=== PATIENT | male | born 1975 | race Caucasian/White ===

== ENCOUNTER 2020-10-26 13:04 | Emergency (ER) | payer MEDICAID, SELFPAY ==
[2020-10-26 13:05] VITALS: BP 132/84; PULSE 58; RESP 16; TEMP 36.4; O2SAT 98; BMI 27.1
[2020-10-26] MEDS: Lidocaine 1% (20 ml mdv) 20 ML Vial 5 ML INFILT (14:01)
[2020-10-26] MEDS: Lidocaine/Epi/Tetracaine 50 ML 1 APPLIC TOPICAL (14:01)
--- NOTE | 2020-10-26 15:16 | EX.ED.UPPERE ---
HPI History of Present Illness HPI Narrative: Splinter in right palm. Chief Complaint: Foreign Body Informant: patient Onset/Context/Timing Onset: Yesterday Timing: Continuous Quality of Pain: Sharp Current Severity: Mild Maximum Severity: Mild Narrative Narrative: 45-year-old male [id number]. Tetanus Immunization: 5-10 years Prior similar symptoms: No Recent Illness/Hospitalization: No PFSH PFSH Home Medications cephalexin 500 mg PO Q6H 7 Days #28 cap 10/26/20 [Rx Last Taken Unknown] Allergy/AdvReac Type Severity Reaction Status Date / Time No Known Allergies Allergy Verified 10/26/20 13:04 Social History Smoking Status: Current every day smoker tobacco type: cigarettes ROS ROS ED ROS Narrative Patient denies any recent illness. Review of Systems ROS Unobtainable: Denies due to encephalopathy Constitutional Constitutional ED: Denies frequent falls Eyes Eyes: Denies change in vision ENT ENT ED: Denies ear pain or sore throat Cardiovascular Cardiovascular: Denies chest pain Respiratory/Chest Respiratory/Chest: Denies dyspnea Gastrointestinal Gastrointestinal: Denies abdominal pain, diarrhea, nausea or vomiting Genitourinary Genitourinary ED: Denies dysuria Musculoskeletal Musculoskeletal: Denies myalgias Integumentary Denies rash Neurologic Neurologic: Denies headache(s) Psychiatric Psychiatric: Denies depression Endocrine Endocrinology: Denies polyuria Hematologic/Lymphatic Hematologic/Lymphatic: Denies easy bruising Allergic/Immunologic Allergic/Immunologic ED: Denies urticaria EXAM Physical Exam Narrative Exam Narrative: Well-appearing middle-age male no acute distress. Vital signs stable afebrile. Patient is a small puncture wound to the ulnar side of his right medial palm. Tender to palpation. No pus. No red streaks. No lymphadenopathy. He has full range of motion of his right wrist and hand. Is full flexion-extension all digits 8. Hand neurovascularly intact. Otherwise exam unremarkable. Const Vital Signs: 10/26/20 13:05 Temperature 97.6 F L Temperature Source Temporal Pulse Rate 58 L Respiratory Rate 16 Blood Pressure 132/84 H Blood Pressure Mean 100 Pulse Ox 98 Oxygen Delivery Method Room Air Positive well nourished and well developed General Appearance ED: well developed HEENT normocephalic and atraumatic; Negative for trauma or tenderness Eyes PERRL Neck full ROM and supple Chest Wall inspection of chest normal Resp normal respiratory effort and clear to auscultation bilaterally Cardio regular rate, regular rhythm and no murmurs GI non-tender and non-distended Palpation: soft Extremity normal to inspection and full ROM Extremity Narrative: Right palm ulnar side medially there is a small puncture wound. Questionable foreign body. Locally anesthetized the area with let. I probed around I could not feel any obvious splinter. I then made a small erich incision again could not find any splinter. There appeared to be entrance of a foreign body but they had removed pieces of it already at home yesterday. There was no pus. I then used the C arm and on multiple views I could not see any type of foreign body. Neuro oriented x3 and CN's II-XII intact bilaterally Sensorium / Orientation: alert and oriented to person Motor Exam: strength 5/5 throughout Psych mental status grossly normal Skin Rashes: no rashes MDM MDM MDM Narrative Medical decision making narrative: Erich incision made. No foreign body seen. Using C arm multiple views no signs of foreign body. Discussed with patient and his . The area be cleaned antibiotic ointment applied and dressed. He will be started on Keflex first dose given in the ER. Discharge Plan Triage Chief Complaint: Foreign Body ED Provider: Vel Wright Dx/Rx/DC Orders Clinical Impression: Puncture wound Instructions: ED Puncture Wound (General), ED Splinter Removal Prescriptions: New cephalexin 500 mg capsule 500 mg PO Q6H 7 Days Qty: 28 RF: 0 Primary Care Provider: Care Physician,No Primary Referrals: Wes Jaimes MD [STAFF PHYSICIAN] - 3-5 Days if not improving Care Physician,No Primary [Primary Care Provider] - Activity Restrictions/Additional Instructions: Clean hand puncture wound twice daily with either soap and water or peroxide water. Dry thoroughly. Apply antibiotic ointment. Cover with Band-Aid. Return if she has worsening hand wound with increased swelling, redness, fever, pus or red streaks. Review x-rays Antibiotic Keflex 1 pill 4 times a day till gone in 7 days. Motrin Tylenol for pain. At this time I could not find any foreign body or splinter. This appears to be a puncture wound that could be early infection and we treated with antibiotics. Follow-up with physician if not improving return emergency department if worse. Disposition Disposition: Home, self care
[2020-10-26] MEDS: Cephalexin 250 MG Capsule 500 MG PO (15:26)
== END 2020-10-26 15:40 | disposition home or self-care (01) ==
PROVIDERS: Emergency Provider Emergency Medicine
DX: S61.431A Puncture wound without foreign body of right hand, initial encounter (principal); X58.XXXA Exposure to other specified factors, initial encounter
CPT/HCPCS: 76000; 99282